=== PATIENT | female | born 1985 | race Caucasian/White ===

== ENCOUNTER 2022-04-16 04:22 | Day surgery (SDC) | payer OTHER ==
[2022-04-11 10:18] VITALS: BMI 19.1
[2022-04-16] MEDS ORDERED: LIDOCAINE HCL/PF 1% SDV 5ML VIAL ONE (07:28)
[2022-04-16] MEDS ORDERED: BUPIVACAINE HCL/PF 0.25% (2.5MG/ML) 10 ML VIAL ONE (07:29)
[2022-04-16] MEDS ORDERED: BUPIVACAINE HCL/PF 0.5% (5MG/ML) 10 ML VIAL ONE (07:29)
[2022-04-16] MEDS ORDERED: TRIAMCINOLONE ACET 40MG/1ML VIAL ONE (07:30)
[2022-04-16 08:47] VITALS: RESP 18
[2022-04-16] MEDS ORDERED: BUPIVACAINE HCL/PF 2.5 MG/ML - 30 ML VIAL IJ ONE (10:08)
[2022-04-16] MEDS ORDERED: IOHEXOL 180 MG/1 ML ML IJ ONE (10:08)
[2022-04-16] MEDS ORDERED: TRIAMCINOLONE ACET 40MG/1ML VIAL IM ONE (10:09)
[2022-04-16] MEDS ORDERED: LIDOCAINE HCL 1% PRESERVATIVE FREE - 30ML VIAL IJ ONE (10:09)
[2022-04-16 10:25] VITALS: BP 112/61; PULSE 80; TEMP 98.6
== END 2022-04-16 10:44 | disposition home or self-care (01) ==
LOC: JASU-SURG 04:22
PROVIDERS: ATTEND Pain Medicine Pain Medicine
PROC: 3E0U33Z Introduction of Anti-inflammatory into Joints, Percutaneous Approach (ICD-10-PCS; 2022-04-16)
PROC: BQ40ZZZ Ultrasonography of Right Hip (ICD-10-PCS; 2022-04-16)
PROC: 3E0U3BZ Introduction of Anesthetic Agent into Joints, Percutaneous Approach (ICD-10-PCS; principal; 2022-04-16 10:00)
DX: M16.11 Unilateral primary osteoarthritis, right hip (principal)
CPT/HCPCS: 76000-TC-FY; 81025